=== PATIENT | male | born 1980 | race Caucasian/White ===

== ENCOUNTER 2017-12-05 11:16 | Emergency (ER) | payer OTHER ==
[2017-12-05 11:31] VITALS: BP 110/68
--- NOTE | 2017-12-05 11:50 | ED Physician Documentation ---
General Adult - HISTORIAN Historian: patient - HPI Stated Complaint: RASH Chief Complaint: General Adult Onset: days ago Timing: still present Severity: moderate Further Comments: yes (Pt is a 37 yo male from the [facility] home with schizophrenia , bipolar d/o, MR and other medical issues, who has a rash on his torso, R flank , and the back of his neck. Rash is itchy and burning.) - ROS CONST: no problems EYES/ENT: none CVS/RESP: none GI/: none MS/SKIN/LYMPH: rash - PAST HX Past History: other (Schizophrenia, Bipolar d/o, MMR, COPD, Asthma, GERD, Polysubstance dependence, suicide risk, Migraine, back pain, Eczema) Allergies/Adverse Reactions: Allergies Allergy/AdvReac Type Severity Reaction Status Date / Time No Known Allergies Allergy Verified 12/05/17 11:32 Home Medications: Ambulatory Orders Medication Instructions Recorded Aripiprazole [Abilify] 10 mg PO HS 12/05/17 Citalopram Hydrobromide [Celexa] 40 mg PO QD 12/05/17 Docusate Sodium [Colace] 100 mg D 12/05/17 Famotidine [Pepcid] 20 mg D 12/05/17 [place] Carbonate [[place] 450 mg HS 12/05/17 Carbonate ER] [place] Citrate [[place]] 300 mg D 12/05/17 Prazosin HCl [Minipress] 1 mg PO D 12/05/17 Risperidone Microspheres 50 mg IM WEEK 12/05/17 [Risperdal Consta] Simvastatin [Zocor] 10 mg D 12/05/17 Tiotropium [place] [Spiriva] 1 inh PO D 12/05/17 Trazodone HCl [Desyrel] 100 mg HS 12/05/17 clonazePAM [Klonopin] 0.5 mg BID 12/05/17 - SOCIAL HX Smoking History: non-smoker - FAMILY HX Family History: No - VITAL SIGNS Vital Signs: Vital Signs Temp Pulse Resp BP Pulse Ox 97.1 F L 75 20 110/68 96 12/05/17 11:26 12/05/17 11:26 12/05/17 11:26 12/05/17 11:26 12/05/17 11:26 - REVIEWED ASSESSMENTS Nursing Assessment Reviewed: Yes Vitals Reviewed: Yes Progress - Progress Progress: Rash appears as crusted lesions and appears like herpes zoster, but is b/l. Pt does not have a known hx of immunocompromise. Pt does not have systemic sx. Some lesions are excoriated and at risk for superinfection. Rx Valcyclovir 1000 mg. Take one by mouth every 8 hrs for 7 days. Rx Keflex 500 mg. Take one by mouth every 8 hrs for 7 days. Rx Tylenol #3 (with codeine). Take one or two by mouth every 6 hrs as needed for pain. Stable Attendant is Lety Lovelace, Tel. [phone]. General Adult Physical Exam - PHYSICAL EXAM GENERAL APPEARANCE: mild distress EENT: pharynx normal NECK: supple, other (rash with crusting lesions on posterior neck b/l) RESPIRATORY: no resp distress, chest non-tender, breath sounds normal CVS: reg rate & rhythm, heart sounds normal BACK: normal inspection, no CVA tenderness SKIN: other (rash with crusted lesions on R flank, L arm, and back of neck, some of these are excoriated) EXTREMITIES: non-tender, normal range of motion, no evidence of injury NEURO: motor nml, sensation nml, other (baseline mental status) Discharge Clincal Impression: Rash, ? herpes zoster Referrals: Eb Carney [Primary Care Provider] - Condition: Stable Disposition: 01 HOME, SELF-CARE Decision to Admit: NO Decision Time: 12:10
== END 2017-12-05 12:09 | disposition home or self-care (01) ==
LOC: ED 11:16
DX: R21 Rash and other nonspecific skin eruption (principal)
CPT/HCPCS: 99282

== ENCOUNTER 2018-06-27 22:18 | Emergency (ER) | payer OTHER ==
--- NOTE | 2018-06-27 22:41 | ED Physician Documentation ---
Head Injury - HISTORIAN Historian: patient - HPI Stated Complaint: Fall with head injury Chief Complaint: Head Injury Onset: hours (3) Where: home Timing: still present Context: fall Severity: mild Loss of Consciousness: brief (seconds) Further Comments: yes (He states he was on the back deck and fell down two stairs and hit the bottom deck and he feels he did pass out and now his head hurts. he does have some mild nausea no vomiting . No other complaints of pain. Per his worker he had no witness to this fall.) - ROS CONST: no problems MS/SKIN/LYMPH: denies: weakness, numbness, neck pain, back pain GI/: nausea. denies: vomiting - PAST HX Past History: other (schizophrenia, bipolar, COPD , suicidal ideations in the past, GERD, Chronic back pain ) Immunizations: UTD Allergies/Adverse Reactions: Allergies Allergy/AdvReac Type Severity Reaction Status Date / Time No Known Allergies Allergy Verified 06/27/18 22:37 Home Medications: Ambulatory Orders Medication Instructions Recorded Aripiprazole [Abilify] 10 mg PO HS 12/05/17 Citalopram Hydrobromide [Celexa] 40 mg PO QD 12/05/17 Docusate Sodium [Colace] 100 mg D 12/05/17 Famotidine [Pepcid] 20 mg D 12/05/17 [place] Carbonate [[place] 450 mg HS 12/05/17 Carbonate ER] Prazosin HCl [Minipress] 1 mg PO D 12/05/17 Risperidone Microspheres 50 mg IM WEEK 12/05/17 [Risperdal Consta] Simvastatin [Zocor] 10 mg D 12/05/17 Tiotropium [place] [Spiriva] 1 inh PO D 12/05/17 Trazodone HCl [Desyrel] 100 mg HS 12/05/17 clonazePAM [Klonopin] 0.5 mg BID 12/05/17 Acetaminophen [Tylenol] 650 mg PO Q4-6 PRN 06/27/18 Albuterol Sulfate [Proair HFA] 2 puff IH QID PRN 06/27/18 Fluoride (Sodium) [Prevident 5000] 100 ml DT BID 06/27/18 [place] Carbonate [[place] 450 mg PO HS 06/27/18 Carbonate ER] Magnesium Hydroxide [Milk of 30 ml PO Q4 PRN 06/27/18 Magnesia] Magnesium, Aluminum Hydroxide 30 ml PO Q4 PRN 06/27/18 [Maalox] - SOCIAL HX Smoking History: cigarettes Alcohol Use: none Drug Use: none - FAMILY HX Family History: none - VITAL SIGNS Vital Signs: Vital Signs Temp Pulse Resp BP Pulse Ox 98.6 F 60 18 120/75 98 06/27/18 22:20 06/27/18 22:20 06/27/18 22:20 06/27/18 22:20 06/27/18 22:20 - REVIEWED ASSESSMENTS Nursing Assessment Reviewed: Yes Vitals Reviewed: Yes ED Results Lab/Radiology - Radiology Radiology Impressions: Head CT without contrast CLINICAL HISTORY: Syncopal episode with injury to back of the head headache dizziness. Memory loss. TECHNIQUE: CT examination of brain is performed in contiguous axial slices with sagittal and coronal reconstructions. FINDINGS: 4th ventricle lies in a normal midline position. The ventricles and sulci are prominent for the patient's age consistent with premature atrophy. There is no hypodense or hyperdense mass or intracranial hemorrhage. Retention cyst is present the right maxillary sinus with mucosal thickening in the maxillary sinuses. The mastoid air cells are clear. IMPRESSION: Premature atrophy. No acute intracranial changes. Chronic paranasal sinus disease. Electronically signed on Jun 27, 2018 10:57:49 PM CDT by: Thai Shelby - Orders Orders: ED Orders Category Date Time Status CT BRAIN W/O CONTRAST Stat Exams 06/27/18 Ordered Head Injury Physical Exam - Physical Exam General Appearance: no acute distress, alert Head: non-tender, no swelling, no obvious injury (posterior scalp complaint of pain with palpation no obvious injury ) Neck: non-tender, painless ROM Eyes: ALFONSO Neuro: alert, oriented x3, cooperative, interactive, mood/affect nml Cranial: nml as tested Resp/CVS: chest non-tender, breath sounds nml, heart sounds nml, no resp. distress Skin: warm/dry, normal color Extremities: atraumatic - Energy Coma Score Coma Scale Eye Opening: Spontaneous Coma Scale Verbal: Oriented Coma Scale Motor: Obeys Commands Discharge Clincal Impression: Fall Qualifiers: Encounter type: initial encounter Qualified Code(s): W19.XXXA - Unspecified fall, initial encounter Referrals: Eb Carney [Primary Care Provider] - 2 Days Comments: 1. OTC meds as directed as needed for headache 2. Follow up with PCP in 2-4 days 3. Return to ER for any concerns Condition: Stable Disposition: 01 HOME, SELF-CARE Decision to Admit: NO Date of Decison to Admit: 06/27/18 Decision Time: 23:04
--- NOTE | 2018-06-27 23:07 | Diagnostic Imaging Report ---
BRODY JARA [facility] [address] [facility] [address] [address] Report Submission Date: Jun 27, 2018 10:57:49 PM CDT Patient Study Name: YAA CORTES Date: Jun 27, 2018 10:42:13 PM CDT Modality Type: CT Gender: M Description: CT BRAIN W/O CONTRAST : 76 Institution: [facility] Physician: BRODY JARA Head CT without contrast CLINICAL HISTORY: Syncopal episode with injury to back of the head headache dizziness. Memory loss. TECHNIQUE: CT examination of brain is performed in contiguous axial slices with sagittal and coronal reconstructions. FINDINGS: 4th ventricle lies in a normal midline position. The ventricles and sulci are prominent for the patient's age consistent with premature atrophy. There is no hypodense or hyperdense mass or intracranial hemorrhage. Retention cyst is present the right maxillary sinus with mucosal thickening in the maxillary sinuses. The mastoid air cells are clear. IMPRESSION: Premature atrophy. No acute intracranial changes. Chronic paranasal sinus disease. Electronically signed on Jun 27, 2018 10:57:49 PM CDT by: Thai BOCANEGRA
[2018-06-28 00:05] VITALS: BP 105/77
== END 2018-06-27 23:05 | disposition home or self-care (01) ==
LOC: ED 22:18
DX: S09.90XA Unspecified injury of head, initial encounter (principal); W19.XXXA Unspecified fall, initial encounter; Y92.9 Unspecified place or not applicable; Y93.9 Activity, unspecified; Y99.9 Unspecified external cause status; R42 Dizziness and giddiness
CPT/HCPCS: 70450; 99284

== ENCOUNTER 2018-09-12 21:31 | Emergency (ER) | payer OTHER ==
--- NOTE | 2018-09-12 21:54 | ED Physician Documentation ---
Upper Respiratory Symptoms - HISTORIAN Historian: patient - HPI Stated Complaint: cough was treated with antibiotic last week Chief Complaint: Cough/ Upper Respiratory Onset: days ago (2) Duration: constant Context: other (he was treated for a URI with antibiotics over [place] and he was feeling better until two days ago when he started to feel tired and with cough that is "worse than before" states that he has had a low grade fever. Cough is productive. No OTC meds. No rash. Sick contacts - his roomate ) - ROS CONST/EYES: other (none) CVS/RESP: other (cough) LYMPH: denies: rash GI/: none - PAST HX Lung Disease: other (recent bronchitis ) Immunizations: UTD Allergies/Adverse Reactions: Allergies Allergy/AdvReac Type Severity Reaction Status Date / Time No Known Allergies Allergy Verified 09/12/18 22:26 Home Medications: Ambulatory Orders Medication Instructions Recorded Aripiprazole [Abilify] 15 mg PO HS 12/05/17 Citalopram Hydrobromide [Celexa] 40 mg PO QD 12/05/17 Docusate Sodium [Colace] 100 mg PO BID 12/05/17 Famotidine [Pepcid] 20 mg PO HS 12/05/17 [place] Carbonate [[place] 300 mg PO AM 12/05/17 Carbonate ER] Prazosin HCl [Minipress] 1 mg PO HS 12/05/17 Risperidone Microspheres 50 mg IM QOW 12/05/17 [Risperdal Consta] Simvastatin [Zocor] 10 mg PO HS 12/05/17 Tiotropium [place] [Spiriva] 18 mcg PO DAILY 12/05/17 Trazodone HCl [Desyrel] 100 mg PO HS 12/05/17 clonazePAM [Klonopin] 0.5 mg PO BID 12/05/17 Acetaminophen [Tylenol] 650 mg PO Q4-6 PRN 06/27/18 Albuterol Sulfate [Proair HFA] 2 puff IH QID PRN 06/27/18 Fluoride (Sodium) [Prevident 5000] 100 ml DT BID 06/27/18 [place] Carbonate [[place] 450 mg PO HS 06/27/18 Carbonate ER] Magnesium Hydroxide [Milk of 30 ml PO Q4 PRN 06/27/18 Magnesia] Magnesium, Aluminum Hydroxide 30 ml PO Q4 PRN 06/27/18 [Maalox] - SOCIAL HX Smoking History: non-smoker Alcohol Use: none Drug Use: none - FAMILY HX Family History: none - VITAL SIGNS Vital Signs: Vital Signs Temp Pulse Resp BP Pulse Ox 99.8 F H 83 20 100/65 95 09/12/18 21:32 09/12/18 23:34 09/12/18 23:34 09/12/18 23:34 09/12/18 23:34 - REVIEWED ASSESSMENTS Nursing Assessment Reviewed: Yes Vitals Reviewed: Yes Progress - Progress Progress: 2300: results discussed DG ED Results Lab/Radiology - Lab Results Lab Results: Lab Results 09/12/18 09/12/18 09/12/18 22:20 22:17 22:16 WBC 9.10 K/ul K/ul (4.00-12.00) RBC 4.68 M/ul M/ul (3.90-5.20) Hgb 15.0 g/dL g/dL (12.0-18.0) Hct 45.4 % % (37.0-53.0) MCV 97.0 fl fl (80.0-100.0) MCH 32.1 pg pg (28.0-34.0) MCHC 33.1 g/dL g/dL (30.0-36.0) RDW 12.6 % % (11.3-14.3) Plt Count 228 K/mm3 K/mm3 (130-400) Neut % (Auto) 63.9 % % (39.0-79.0) Lymph % (Auto) 27.7 % % (16.0-50.0) Crisp % (Auto) 5.3 % % (0.0-11.0) Eos % (Auto) 2.6 % % (0.0-6.8) Baso % (Auto) 0.5 (0.0-1.5) Neut # (Auto) 5.8 # k/uL # k/uL (1.4-7.7) Lymph # (Auto) 2.5 # k/uL # k/uL (0.6-4.0) Crisp # (Auto) 0.5 # k/uL # k/uL (0.0-0.9) Eos # (Auto) 0.2 # k/uL # k/uL (0.0-0.6) Baso # (Auto) 0.1 # k/uL # k/uL (0.0-0.5) Sodium 137 mmol/L mmol/L (136-145) Potassium 4.2 mmol/L mmol/L (3.5-5.1) Chloride 102 mmol/L mmol/L (98-107) Carbon Dioxide 32 mmol/L H mmol/L (22-30) BUN 10 mg/dL mg/dL (9-20) Creatinine 0.90 mg/dL mg/dL (0.66-1.25) Estimated Creat Clear 138 Est GFR ( Amer) > 60 (60 - ) Est GFR (Non-Af Amer) > 60 (60 - ) Glucose 110 mg/dL H mg/dL (74-106) Calcium 9.3 mg/dL mg/dL (8.4-10.2) Total Bilirubin 0.3 mg/dL mg/dL (0.2-1.3) AST 83 U/L H U/L (15-46) ALT 39 U/L U/L (13-69) Alkaline Phosphatase 72 U/L U/L (38-126) Total Protein 7.1 g/dL g/dL (6.3-8.2) Albumin 4.2 g/dL g/dL (3.5-5.0) Influenza A (Rapid) Negative (NEGATIVE) Influenza B (Rapid) Negative (NEGATIVE) - Radiology Radiology Impressions: 2 views chest Clinical history: Fever and cough Findings: The heart size is normal. The pulmonary vasculature is normal. No pleural effusion, pneumothorax or alveolar consolidation. Impression: Negative Electronically signed on Sep 12, 2018 10:38:58 PM CLINICAL INSTRUCTOR by: Alexander Ashby - Orders Orders: ED Orders Category Date Time Status IV Started NOW Care 09/12/18 22:01 Active CHEST 2VIEW [RAD] Stat Exams 09/12/18 Completed CBC/PLATELET/DIFF Stat Lab 09/12/18 22:17 Completed CMP Stat Lab 09/12/18 22:16 Completed INFLUENZA A&B Stat Lab 09/12/18 22:20 Completed Doxycycline Monohydrate [Vibramycin] Med 09/12/18 23:01 Discontinued 100 mg PO NOW ONE Ipratropium/Albuterol Sulfate [Duoneb] Med 09/12/18 22:01 Discontinued 3 ml NEB NOW ONE methylPREDNISolone SOD SUCC [Solu-MEDROL] Med 09/12/18 23:00 Discontinued 125 mg IVP NOW ONE Upper Respiratory Symptoms - EXAM General Appearance: no acute distress, alert EENT: eyes nml inspection, nml ENT inspection, PERRL, ear nml Neck: normal inspection Respiratory: no resp. distress, wheezes, rhonchi Abdomen: non-tender CVS: reg rate & rhythm, heart sounds normal Skin: color nml, no rash, warm,dry Extremities: non-tender, normal range of motion, no evidence of injury, no edema Neuro/Psych: oriented x3 Discharge Clincal Impression: Bronchitis Referrals: Eb Carney [Primary Care Provider] - 2 Days Comments: 1. Doxycycline 100 mg take 1 by mouth twice daily x 10 days 2. Pro Air 90 mcg take 2 puffs every 4 hours as needed for cough 3. Increase fluids 4. OTC meds as ordered for pain/fever/headache 5. See PCP in 2-4 days if no improvement 6. Return to ER for any concerns Condition: Stable Disposition: 01 HOME, SELF-CARE Decision to Admit: NO Date of Decison to Admit: 09/12/18 Decision Time: 23:09
[2018-09-12] MEDS ORDERED: IPRATROPIUM/ALBUTEROL SULFATE 3 ML AMPUL.NEB NEB ONE (22:01)
[2018-09-12] MEDS ORDERED: methylPREDNISolone SOD SUCC 125 MG/2 ML VIAL IVP ONE (23:00)
[2018-09-12] MEDS ORDERED: DOXYCYCLINE 100 MG CAPSULE PO ONE (23:01)
[2018-09-12 23:38] VITALS: BP 100/65
--- NOTE | 2018-09-13 06:05 | Diagnostic Imaging Report ---
BRODY JARA [facility] [address] [facility].[address] [address] Report Submission Date: Sep 12, 2018 10:38:58 PM TEST DESK TROUBLE LOCATOR Patient Study Name: YAA CORTES Date: Sep 12, 2018 10:14:12 PM TEST DESK TROUBLE LOCATOR Modality Type: DX Gender: M Description: CHEST : 76 Institution: [facility] Physician: BRODY JARA 2 views chest Clinical history: Fever and cough Findings: The heart size is normal. The pulmonary vasculature is normal. No pleural effusion, pneumothorax or alveolar consolidation. Impression: Negative Electronically signed on Sep 12, 2018 10:38:58 PM TEST DESK TROUBLE LOCATOR by: Alexander BOCANEGRA
[2018-09-13 06:57] LABS: BASOPHILS % 0.5 (0.0-1.5); EOSINOPHILS % 2.6 % (0.0-6.8); MEAN CORPUSCULAR HEMOGLOBIN 32.1 pg (28.0-34.0); MONOCYTES % 5.3 % (0.0-11.0); NEUTROPHILS # 5.8 # k/uL (1.4-7.7)
[2018-09-13 06:58] LABS: eGFR (Non-African) > 60
== END 2018-09-12 23:26 | disposition home or self-care (01) ==
LOC: ED 21:31
DX: J40 Bronchitis, not specified as acute or chronic (principal)
CPT/HCPCS: 36415; 71046; 80053; 85025; 87400; 94640; 96374; 99283; 99284; J2930; S1016

== ENCOUNTER 2018-11-28 17:59 | Emergency (ER) | payer OTHER ==
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
[2018-11-28 19:45] VITALS: BP 122/78
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
== END 2018-11-28 19:30 | disposition home or self-care (01) ==
LOC: ED 17:59
DX: M79.631 Pain in right forearm (principal); Y04.0XXA Assault by unarmed brawl or fight, initial encounter; Y93.9 Activity, unspecified; Y92.9 Unspecified place or not applicable
CPT/HCPCS: 73090; 99282; 99283

== ENCOUNTER 2019-07-03 11:24 | Emergency (ER) | payer OTHER ==
[2019-07-03] MEDS ORDERED: MAG HYDROX/ALUMINUM HYD/SIMETH 30 ML UDC PO ONE (11:33)
[2019-07-03 11:47] LABS: BASOPHILS % 0.5 % (0.0-1.5); NEUTROPHILS # 9.1 # k/uL (1.4-7.7)
--- NOTE | 2019-07-03 11:50 | ED Physician Documentation ---
Chest Pain - HISTORIAN Historian: patient - HPI Stated Complaint: SOA and CP Chief Complaint: Chest Pain Additional Information: Patient presents to ED with substernal chest pain since yesterday. Patient states, "there is a lot of stress at home, I think I am having a heart attack". Patient lives in a care home, has schizophrenia and He states the pain is constant, 6/10, nonradiating with no associated symptoms other than the hiccups. He has a history of COPD and GERD. Onset: hours (24) Timing: gradual onset Duration: constant Last known Well Date: 07/02/19 Last Known Well Time: 11:50 Context: rest Severity: moderate Quality: tightness, burning Chest Pain Radiation: no radiation Chest Pain Signs/Symptoms: denies: nausea, vomiting Worsened By: nothing Relieved By: nothing - ROS CONST: none MS/LYMPH: none GI/: none EYES/ENT: none SKIN/ENDO: none NEURO/PSYCH: none - PAST HX MD risk factors: other (schizophrenia) DVT/PE Risk Factors: none TAD/AAA risk factors: none Neuro deficit: none GI disease: GERD Lung disease: COPD Surgeries/Procedures: none Allergies/Adverse Reactions: Allergies Allergy/AdvReac Type Severity Reaction Status Date / Time No Known Allergies Allergy Verified 07/03/19 11:43 Home Medications: Ambulatory Orders Medication Instructions Recorded Aripiprazole [Abilify] 15 mg PO HS 12/05/17 Citalopram Hydrobromide [Celexa] 40 mg PO QD 12/05/17 Docusate Sodium [Colace] 100 mg PO BID 12/05/17 [place] Carbonate [[place] 300 mg PO AM 12/05/17 Carbonate ER] Prazosin HCl [Minipress] 1 mg PO HS 12/05/17 Risperidone Microspheres 50 mg IM QOW 12/05/17 [Risperdal Consta] Simvastatin [Zocor] 10 mg PO HS 12/05/17 Tiotropium [place] [Spiriva] 18 mcg PO DAILY 12/05/17 Trazodone HCl [Desyrel] 100 mg PO HS 12/05/17 clonazePAM [Klonopin] 0.5 mg PO BID 12/05/17 Acetaminophen [Tylenol] 650 mg PO Q4-6 PRN 06/27/18 Albuterol Sulfate [Proair HFA] 2 puff IH QID PRN 06/27/18 [place] Carbonate [[place] 450 mg PO HS 06/27/18 Carbonate ER] Magnesium Hydroxide [Milk of 30 ml PO Q4 PRN 06/27/18 Magnesia] Baclofen 10 mg PO Q12 PRN #30 tablet 07/03/19 - SOCIAL HX Smoking History: non-smoker Alcohol Use: none Drug Use: none - FAMILY HX Family HX: none - VITAL SIGNS Vital Signs: Vital Signs Temp Pulse Resp BP Pulse Ox 98.2 F 84 19 129/87 90 L 07/03/19 11:33 07/03/19 11:33 07/03/19 11:33 07/03/19 11:33 07/03/19 11:33 - REVIEWED ASSESSMENTS Nursing Assessment Reviewed: Yes Vitals Reviewed: Yes Progress - Progress Progress: 1257 Patient states he chest pain free now. Hiccups have resolved with Baclofen ED Results Lab/Radiology - Lab Results Lab Results: Lab Results 07/03/19 11:34 WBC 11.70 K/ul K/ul (4.00-12.00) RBC 4.81 M/ul M/ul (3.90-5.20) Hgb 15.8 g/dL g/dL (12.0-18.0) Hct 45.4 % % (37.0-53.0) MCV 94.0 fl fl (80.0-100.0) MCH 32.8 pg pg (28.0-34.0) MCHC 34.7 g/dL g/dL (30.0-36.0) RDW 12.8 % % (11.3-14.3) Plt Count 188 K/mm3 K/mm3 (130-400) Neut % (Auto) 77.6 % % (39.0-79.0) Lymph % (Auto) 13.5 % L % (16.0-50.0) [place] % (Auto) 6.5 % % (0.0-11.0) Eos % (Auto) 1.9 % % (0.0-6.8) Baso % (Auto) 0.5 % % (0.0-1.5) Neut # (Auto) 9.1 # k/uL H # k/uL (1.4-7.7) Lymph # (Auto) 1.6 # k/uL # k/uL (0.6-4.0) Ector # (Auto) 0.8 # k/uL # k/uL (0.0-0.9) Eos # (Auto) 0.2 # k/uL # k/uL (0.0-0.6) Baso # (Auto) 0.1 # k/uL # k/uL (0.0-0.5) - Radiology Radiology Impressions: Report Submission Date: Jul 03, 2019 12:22:02 PM CDT Patient Study Name: YAA CORTES Date: Jul 03, 2019 11:52:58 AM CDT Modality Type: DX Gender: M Description: CHEST 1VIEW : 76 Institution: [facility] Physician: OPAL RIVERA Ap portable upright radiographs of the chest Clinical history: Chest pain September 12, 2018 Technique: anterior /posterior portable upright Findings: The lung ortiz are clear. The heart and mediastinal structures are normal. The bony thorax is unremarkable. No pneumothorax or pleural effusion is seen. Impression: No acute pulmonary disease Electronically signed on Jul 03, 2019 12:22:02 PM CDT by: Lake Mehta - Orders Orders: ED Orders Category Date Time Status Place IV Lock 1T Care 07/03/19 11:29 Active CHEST 1VIEW [RAD] Stat Exams 07/03/19 Ordered CBC/PLATELET/DIFF Routine Lab 07/03/19 11:34 Received CMP Routine Lab 07/03/19 Received TROPONIN I Stat Lab 07/03/19 11:34 Received Mag Hydrox/Aluminum Hyd/Simeth [Mylanta] Med 07/03/19 11:33 Discontinued 30 ml PO NOW ONE EKG WITH COMPARISON Stat Ther 07/03/19 Ordered Chest Pain Physical Exam - EXAM General Appearance: no acute distress, alert EENT: ALFONSO Neck: nml inspection Respiratory: no resp. distress, chest non-tender, decreased air movement CVS: reg. rate & rhythm, no murmur Abdomen: soft, normal bowel sounds Skin: warm/dry, normal color Extremities: non-tender, normal range of motion, no edema Neuro: oriented X3, mood/affect nml Discharge Clincal Impression: Non-cardiac chest pain, Hiccups Prescriptions: Baclofen 10 mg PO Q12 PRN #30 tablet PRN Reason: Hiccups Referrals: Yaa Carney [Primary Care Provider] - 2 Days Additional Instructions: 1. Baclofen every 12 hours as needed for hiccups 2. Continue all home medications as previously prescribed 3. Drink plenty of fluids to maintain proper hydration. Avoid caffeine and alcohol 4. Follow up with PCP within 1 week 5. Return to ER for new or worsening symptoms Condition: Stable Disposition: 01 HOME, SELF-CARE Decision to Admit: NO Date of Decison to Admit: 07/03/19 Decision Time: 13:00
[2019-07-03 12:10] LABS: eGFR (Non-African) > 60
[2019-07-03] MEDS ORDERED: IPRATROPIUM/ALBUTEROL SULFATE 3 ML AMPUL.NEB NEB ONE (12:15)
--- NOTE | 2019-07-03 12:26 | Diagnostic Imaging Report ---
PATIENT MR#: [id number] PATIENT PATIENT NAME: YAA CORTES DATE OF : 1980 REFERRING PHYSICIAN: Sanjana Castañeda EXAM DATE: 07/03/2019 ACCESSION NUMBER: [id number] EXAM DESCRIPTION: CHEST 1VIEW Ap portable upright radiographs of the chest Clinical history: Chest pain September 12, 2018 Technique: anterior /posterior portable upright Findings: The lung ortiz are clear. The heart and mediastinal structures are normal. The bony thorax is unremarkable. No pneumothorax or pleural effusion is seen. Impression: No acute pulmonary disease Read by: Dr. Lake Mehta Transcribed by: Transcribed Date: Electronically signed by: Dr. Lake Mehta Date signed: 07/03/2019 12:25:38 PM
[2019-07-03] MEDS ORDERED: BACLOFEN 10 MG TABLET PO ONE (12:34)
[2019-07-03 13:14] VITALS: BP 119/74
== END 2019-07-03 13:13 | disposition home or self-care (01) ==
LOC: ED 11:24
DX: R07.89 Other chest pain (principal); R06.6 Hiccough
CPT/HCPCS: 36415; 71045; 80053; 84484; 85025; 93005; 94640; 99283; S1016